=== PATIENT | female | born 1950 | race Caucasian/White ===

== ENCOUNTER 2019-10-15 12:22 | Outpatient (CLI) | payer MEDICARE ==
--- NOTE | 2019-10-15 13:29 | CT ---
CT CHEST WITHOUT CONTRAST: Date: 10-15-2019 Provided Clinical History: Nicotine dependence. FINDINGS: No comparisons. The heart, pericardium, and great vessels are suboptimally evaluated in the absence of IV contrast ma terial. Heart size appears normal. Aortic caliber is normal. Vascular calcification including coronar y calcium is seen. There is no evidence for thoracic lymph node enlargement with limitations in evaluation for hilar shauna nopathy due to lack of IV contrast. There are several sub 4 mm nodular densities at each lung apex. There are areas of subpleural ground glass opacity and admixed small cysts present within the anterior aspects of both upper lobes primari ly with lesser involvement of the midlung zones anteriorly. There is a 4.3 cm thin walled cyst involv ing the left lower lobe near the base. The airway appears patent and of normal caliber. No pleural fluid or pneumothorax is apparent. The visualized portions of the upper abdomen demonstrate the unremarkable unenhanced CT appearance. The osseous structures demonstrate no concerning lytic or blastic lesions. IMPRESSION: 1. Lung rads category 2 - benign. Continue annual screening. 2. Lung rads category S: Ground glass opacity and admixed cystic change involving the lung apices, pr esumably reflecting smoking related interstitial lung disease. POS: C
== END 2019-10-15 12:23 | disposition home or self-care (01) ==
LOC: CT 12:22
PROVIDERS: ATTEND Family Medicine Sports Medicine
DX: Z12.2 Encounter for screening for malignant neoplasm of respiratory organs (principal); F17.210 Nicotine dependence, cigarettes, uncomplicated; R91.8 Other nonspecific abnormal finding of lung field
CPT/HCPCS: G0297

== ENCOUNTER 2020-09-11 13:39 | Outpatient (CLI) | payer MEDICARE ==
[2020-09-11 18:02] LABS: SARS-CoV-2 PCR by NAA Not Detected (NotDetected)
== END 2020-09-11 13:40 | disposition home or self-care (01) ==
LOC: LABBT 13:39
PROVIDERS: ATTEND Internal Medicine Gastroenterology
DX: Z01.812 Encounter for preprocedural laboratory examination (principal); K63.5 Polyp of colon; Z20.822 Contact with and (suspected) exposure to COVID-19
CPT/HCPCS: 80053; 80061; 81001; U0003; U0005; 87635

== ENCOUNTER 2020-09-16 07:42 | Day surgery (SDC) | payer MEDICARE ==
[2020-09-15 15:05] VITALS: BMI 23.9
[2020-09-16] MEDS ORDERED: PROPOFOL 200 MG/20 ML VIAL ONE (09:49)
[2020-09-16] MEDS ORDERED: Lidocaine 1% PF 5 ML VIAL ONE (09:49)
== END 2020-09-16 12:40 | disposition home or self-care (01) ==
LOC: SDC 07:42
PROVIDERS: ATTEND Internal Medicine Gastroenterology
PROC: 0DBN8ZX Excision of Sigmoid Colon, Via Natural or Artificial Opening Endoscopic, Diagnostic (ICD-10-PCS; principal; 2020-09-16)
DX: Z12.11 Encounter for screening for malignant neoplasm of colon (principal); D12.5 Benign neoplasm of sigmoid colon; K57.30 Diverticulosis of large intestine without perforation or abscess without bleeding; Q43.8 Other specified congenital malformations of intestine; K64.9 Unspecified hemorrhoids; F17.200 Nicotine dependence, unspecified, uncomplicated; J44.9 Chronic obstructive pulmonary disease, unspecified; Z86.010 Personal history of colon polyps; Z88.1 Allergy status to other antibiotic agents
CPT/HCPCS: 88305; J2704

== ENCOUNTER 2020-11-24 12:40 | Outpatient (CLI) | payer MEDICARE | END 2020-11-24 12:41 | disposition home or self-care (01) | LOC: BICCT 12:40 | PROVIDERS: ATTEND Family Medicine Sports Medicine | DX: Z12.2 Encounter for screening for malignant neoplasm of respiratory organs (principal); F17.210 Nicotine dependence, cigarettes, uncomplicated; R91.1 Solitary pulmonary nodule | CPT/HCPCS: 71271 ==